=== PATIENT | male | born 1995 | race Caucasian/White ===

== ENCOUNTER 2022-10-14 14:37 | Emergency (ER) | payer OTHER ==
[2022-10-14] MEDS ORDERED: Boostrix 0.5 ML (Tdap) VIAL (>/=7 yrs of age) ONE (15:05)
[2022-10-14] MEDS ORDERED: Bacitracin 1 PK ONE (15:05)
[2022-10-14] MEDS ORDERED: Amoxicillin/Potassium Clav 250 MG TAB ONE (15:17)
[2022-10-14] MEDS ORDERED: Amoxicillin/Potassium Clav 875 MG TAB ONE (15:19)
[2022-10-14] MEDS ORDERED: Amoxicillin/Potassium Clav 875 MG TAB PO SCH (15:30)
== END 2022-10-14 15:41 | disposition home or self-care (01) ==
LOC: CSHERS 14:37
DX: S71.151A Open bite, right thigh, initial encounter (principal); Z23 Encounter for immunization; W54.0XXA Bitten by dog, initial encounter
CPT/HCPCS: 90471; 90715